=== PATIENT | female | born 2005 | race Caucasian/White ===

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

== ENCOUNTER 2024-10-14 10:54 | Outpatient (REF) | payer BC, SELFPAY ==
[2024-10-15 12:47] LABS: Chlamydia Result Negative (Negative); GC Result Negative (Negative)
== END 2024-10-14 10:55 | disposition home or self-care (01) ==
LOC: NCHCN 10:54
PROVIDERS: PCP Family Medicine; Visit Provider Family Medicine
DX: Z00.00 Encounter for general adult medical examination without abnormal findings (principal)
CPT/HCPCS: 87491; 87591

== ENCOUNTER 2024-11-14 18:19 | Emergency (ER) | payer BC, SELFPAY ==
[2024-11-14 18:20] VITALS: BP 114/72; PULSE 74; RESP 16; TEMP 36.5; O2SAT 98
[2024-11-14 18:23] VITALS: BP 114/72; PULSE 74; RESP 16; TEMP 36.5; O2SAT 98
[2024-11-14] MEDS: Balanced Salt Solution 15 ML BTL OP (18:28)
[2024-11-14] MEDS: Tetracaine 0.5% 4 ML BTL OP (18:30)
[2024-11-14] MEDS: Erythromycin Ophth Oint 3.5 GM TUBE OP (18:30)
[2024-11-14] MEDS: Fluorescein STRIPS 100/BOX 1 MG OP (18:31)
--- NOTE | 2024-11-14 18:37 | W.ED.GENAD ---
Discharge Plan Disposition Patient Disposition: Home Condition: Stable Discharge Details Clinical Impression: Corneal abrasion Primary Care Provider: Kathy Can ED Provider: Vargas Sellers Home Meds and New Rx's Prescriptions: Continued drospirenone-ethinyl estradiol [Loryna (28)] 3-0.02 mg tablet 1 tab PO DAILY Discharge Instructions Additional Instructions: You did not have a visible piece of glass in your eye. You do have a small abrasion on the outside of your eye which usually heal quickly. Use the antibiotic ointment 3 times a day for 5 days or until the tube is gone. If you are not improving this week follow-up with your court specialist. You can take 1000 mg of acetaminophen and 600 mg of ibuprofen every 6 hours as needed. If you feel significantly more ill or have changes in your vision return to the emergency department for reevaluation. You can also use the tetracaine numbing drops every 2-4 hours as needed. Do not use them for more than 24 hours. HPI General Mode of arrival: ambulatory. Date/Time Provider Initiated Documentation: 11/14/24 18:23. Limitations to Documentation: no limitations. Information obtained by: patient. History of Present Illness 19 year old F presents to the emergency department with the chief complaint of right eye pain, described as moderate, Quality is described as aching, and is localized to the eyes and right. Patient reports no radiation. and it has been constant. No relieving factors improve symptom(s), No exacerbating factors reported . Patient notes no other symptoms.. Patient did receive the following treatments prior to arrival, none Related Data Home Medications ?Medication ?Instructions ?Recorded ?Confirmed drospirenone 3 mg-ethinyl 1 tab PO DAILY 11/14/24 11/14/24 estradiol 0.02 mg tablet (Loryna (28)) Allergies Allergy/AdvReac Type Severity Reaction Status Date / Time No Known Allergies Allergy Verified 11/14/24 18:22 General Stated Complaint: EyeProblem BERTHA: 4 Review of Systems All systems reviewed & are unremarkable except as noted in HPI and below Constitutional Constitutional: Denies weakness Eyes Eyes: Denies loss of vision Cardiovascular Cardiovascular: Denies chest pain and Denies dyspnea Respiratory Respiratory: Denies cough and Denies dyspnea Gastrointestinal Gastrointestinal: Denies vomiting Neurologic Neurologic: Denies loss of vision and Denies weakness Exam Const General: no acute distress Orientation: alert HENMT Head: normal to inspection Ears: external ears normal General nose exam: external nose normal Mouth: moist mucous membranes Eyes Alignment and Position: alignment normal Periorbital: periorbital findings normal Neck Neck: normal visual inspection Resp Effort & Inspection: normal respiratory effort and able to speak in complete sentences Cardio Rate: regular rate Skin General skin exam: no rashes or lesions noted Neuro General: patient alert and patient oriented x3 Extrem General: normal to inspection Psych Mental Status: mental status grossly normal Course Vital Signs Vital signs: Vital Signs Temperature 36.5 C 11/14/24 18:20 Pulse 74 11/14/24 18:20 Respiratory Rate 16 11/14/24 18:20 Blood Pressure 114/72 11/14/24 18:20 Pulse Oximetry 98 11/14/24 18:20 Temperature 36.5 C 11/14/24 18:23 Temperature Source Oral 11/14/24 18:23 Pulse 74 11/14/24 18:23 Respiratory Rate 16 11/14/24 18:23 Blood Pressure 114/72 11/14/24 18:23 Blood Pressure Position Sitting 11/14/24 18:23 Pulse Oximetry 98 11/14/24 18:23 Oxygen Delivery Method Room Air 11/14/24 18:23 Oxygen Flow Rate 0 11/14/24 18:23 Pain Level 2 11/14/24 18:23 Medical Decision Making 19-year-old female with no significant past medical history comes in with right eye discomfort. She says she was working on the windshield of a car when it popped down and she felt something on her right index with glass. She flushed her eyes over the hose and still has some discomfort in her right eye so came here for evaluation. She denies any loss of vision. She is well-appearing on exam. No significant conjunctival inflammation. 20/25 vision in the right eye and 20/40 in the left (not wearing her glasses). She has a localized at the site of irritation to the upper medial portion of the conjunctiva. There is no visible foreign body in this area. I felt the eyelids as well and there is no visible foreign body underneath the eyelids. I placed tetracaine and she had immediate relief of the discomfort. I placed fluorescein drop in her eye and see a small 1 mm corneal abrasion at the 3 o'clock position on the conjunctiva. Negative Leo's. She has an court specialist she sees in [place]. I am going to place her on prophylactic erythromycin ointment. She will follow-up with her court specialist in improving this week and return precautions given Differential Diagnosis Differential Diagnosis: Corneal abrasion, foreign body PFSH All Active Problems (Updated 11/14/24 @ 18:55 by Vargas Sellers MD) Corneal abrasion (Acute) Social History Smoking/Tobacco Use Status: Never Smoking risk assessment performed?: Yes Alcohol Intake: current Alcohol Intake frequency: a few times a month Drug use: Never Substance use type: does not use Do you feel safe at home: Yes Do you feel safe in your relationship?: Yes
[2024-11-14 19:10] VITALS: BP 114/72; PULSE 74; RESP 16; TEMP 36.5; O2SAT 98
== END 2024-11-14 19:15 | disposition home or self-care (01) ==
PROVIDERS: Emergency Provider Emergency Medicine; PCP Family Medicine
DX: S05.01XA Injury of conjunctiva and corneal abrasion without foreign body, right eye, initial encounter (principal); X58.XXXA Exposure to other specified factors, initial encounter; Y93.89 Activity, other specified; Y92.89 Other specified places as the place of occurrence of the external cause
CPT/HCPCS: 99283